=== PATIENT | female | born 1950 | race Caucasian/White ===

== ENCOUNTER 2018-11-08 15:03 | Inpatient (IN) | payer MEDICARE ==
[2018-11-08] MEDS ORDERED: Polyethylene Glycol OPTH DROP 15 ML BOT EA EYE PRN (16:54)
[2018-11-08] MEDS: Acetaminophen 325 MG TAB PO PRN (17:51)
[2018-11-08] MEDS ORDERED: STERILE WATER PO SCH ×2 (18:00→18:30)
[2018-11-08] MEDS ORDERED: VANCOMYCIN HCL PO SCH ×2 (18:00→18:30)
[2018-11-08] MEDS ORDERED: Vancomycin HCl 25 MG/ML Oral PO SCH (18:00)
[2018-11-08] MEDS ORDERED: SIMPLE PO SCH ×2 (18:00→18:30)
[2018-11-08] MEDS: Gabapentin 300 MG CAP PO SCH (20:54)
[2018-11-08] MEDS: Sodium Bicarbonate Tab 325 MG TAB PO SCH (20:54)
[2018-11-08] MEDS: Carvedilol 6.25 MG TAB PO SCH (20:54)
[2018-11-09] MEDS: SIMPLE PO SCH ×2 (01:56→06:48)
[2018-11-09] MEDS: STERILE WATER PO SCH ×2 (01:56→06:48)
[2018-11-09] MEDS: VANCOMYCIN HCL PO SCH ×2 (01:56→06:48)
[2018-11-09] MEDS: Acetaminophen 325 MG TAB PO PRN ×3 (05:03→17:58)
[2018-11-09 05:15] LABS: #Basophils 0.1 thou/uL (0.0-0.2); #Eosinphils 0.3 thou/uL (0.0-0.7); #Monocytes 1.1 thou/uL (0.11-0.59); %Eosinophils 2.9 % (0.0-10.0); %Lymphocytes 9.9 % (21.0-51.0); %Neutrophils 76.1 % (42.0-75.0); Hemoglobin 8.9 g/dL (12.0-16.0); Mean Corpuscular HGB CONC 31.7 g/dL (32.0-36.0); Mean Corpuscular Hemoglobin 28.3 pg (27.0-31.0); Mean Corpuscular Volume 89.3 fL (78.0-98.0); Mean Platelet Volume 4.9 fL (7.4-10.4); Platelet Count 367 thou/uL (130-400); RBC Distribution Width 14.5 % (11.5-14.5); Red Blood Cell (RBC) Count 3.15 mill/uL (4.20-5.40); White Blood Cell (WBC) Count 10.5 thou/uL (4.8-10.8)
[2018-11-09 05:31] LABS: ALT (SGPT) 36 U/L (8-55); AST (SGOT) 67 U/L (5-34); Alkaline Phosphatase 711 U/L (40-150); Anion Gap 15 mmol/L (10-20); BUN (Urea Nitrogen) 49 mg/dL (9.8-20.1); Bilirubin, Total 0.7 mg/dL (0.2-1.2); Calc. Creatinine Clearance 40 mL/min (70-130); Calcium 8.3 mg/dL (7.8-10.44); Carbon Dioxide 21 mmol/L (23-31); Chloride 111 mmol/L (98-107); Estimated GFR-MDRD 25; Globulin 3.8 g/dL (2.4-3.5); Glucose 98 mg/dL (80-115); Potassium 4.7 mmol/L (3.5-5.1); Protein, Total 6.8 g/dL (6.0-8.3); Sodium 142 mmol/L (136-145)
[2018-11-09] MEDS: Lisinopril 5 MG TAB PO SCH (08:15)
[2018-11-09] MEDS: Sodium Bicarbonate Tab 325 MG TAB PO SCH ×3 (08:16→21:25)
[2018-11-09] MEDS: Atorvastatin Calcium 40 MG TAB PO SCH (08:16)
[2018-11-09] MEDS: Furosemide 40 MG TAB PO SCH (08:16)
[2018-11-09] MEDS: Aspirin Chewable 81 MG TAB PO SCH (08:16)
[2018-11-09] MEDS: Saccharomyces boulardii 250 MG CAP PO SCH (08:16)
[2018-11-09] MEDS: PARoxetine 20 MG TAB PO SCH (08:16)
[2018-11-09] MEDS: Carvedilol 6.25 MG TAB PO SCH ×2 (08:16→21:26)
[2018-11-09] MEDS: Vancomycin HCl 25 MG/ML Oral PO SCH ×3 (08:17→21:25)
[2018-11-09] MEDS: Gabapentin 300 MG CAP PO SCH ×2 (08:17→21:26)
[2018-11-09] MEDS ORDERED: Famotidine 20 MG TAB PO PRN (09:00)
--- NOTE | 2018-11-09 10:35 | HP ---
CHIEF COMPLAINT: Weakness. HISTORY OF PRESENT ILLNESS: The patient is a 68-year-old white female, who had been hospitalized at [facility] from 10/31/2018 to 10/17/2018 for yfagb-ha-lyfqcop systolic congestive heart failure with a history of an ischemic cardiomyopathy with a history of ejection fraction of 30-40 percent on echocardiogram done on 10/07/2018. Her hospitalization was also complicated by acute kidney injury and congestive hepatopathy. She also had some ascites and had undergone a paracentesis with only 24 mL of straw-colored fluid obtained. She was treated for possible spontaneous bacterial peritonitis, but the culture came back negative. She developed diarrhea and her C. diff antigen was positive, but her C diff toxin was negative. Dr. Antony, nut grader thought with her history of the recent antibiotics and the diarrhea that there was a good chance that she indeed had C. diff colitis and recommended treatment with vancomycin 125 mg q.i.d. for 10 days that was started on 11/06/2018. The diarrhea has apparently resolved. The patient was left extremely weak and was transferred to [facility] to [facility] for purpose of physical therapy and occupational therapy in an effort to try to improve her general functional capabilities. The patient was seen soon after her admission. She was awake and alert and talkative, but was not a very good historian. She really did not understand why she had been in the hospital, did not understand about her heart problems and had a little trouble orienting through the day. With help of the nurses, she did better with this. She presently had no complaints other than the weakness. Prior to her admission, she had been living with her sister for about a year in the [facility] who assisted her with her ADLs and instrumental ADLs. PAST MEDICAL HISTORY: Hospitalized at [facility] from 10/31/2018 until 11/08/2018 for acute-on- chronic systolic congestive heart failure; coronary artery disease, for which she has undergone a coronary artery bypass and ischemic cardiomyopathy. She had a hepatopathy from the congestive heart failure with ascites. The patient has coronary artery disease. She has undergone a coronary artery bypass that was single-vessel done in [place] in 2013. She had a coronary angiogram in April of 2018 that showed graft to the LAD and obtuse marginal, had a graft to the RCA that was occluded. Her echocardiogram on 10/07/2018 showed an EF of 30-40 percent with severe calcification of the mitral valve with some mild mitral regurgitation. She also had mild left atrial enlargement. 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 She is a 3, para 3. Two of her children were born by . She has 2 living children present. MEDICATIONS: 1. Sodium bicarb 650 mg t.i.d. 2. Florastor 250 mg daily. 3. Lisinopril 5 mg daily. Glucotrol 2.5 mg daily. 1. Lasix 40 mg daily. 2. Coreg 6.25 mg b.i.d. 3. Aspirin 81 mg daily. 4. Zantac 75 mg daily. 5. Paxil 30 mg daily. 6. Iron 65 mg b.i.d. 7. Gabapentin 300 mg b.i.d. 8. Lipitor 40 mg daily. 9. Oral vancomycin 125 mg q.i.d. for 10 days, started on 11/06/2018. ALLERGIES: NO KNOWN ALLERGIES. REVIEW OF SYSTEMS: CONSTITUTIONAL: The patient thinks she is doing all right. She does not know, if she has had any recent fever or recent change in her weight. HEAD AND NECK: The patient says she has very poor vision in the left eye. She said she has had cataract surgery in both of her eyes with interocular lens implant and has trouble with the retina on the left eye and vision is very poor in that left eye. PULMONARY: No shortness of breath. CARDIOVASCULAR: The patient denies any chest pain. GI: No nausea, vomiting. No abdominal pain. The patient had diarrhea, but this has resolved. : No complaint. ADLs: The patient says she needs help with her ADLs. She has trouble getting up. Once up, she can walk a little bit with the use of a walker. HABITS: Alcohol, none. Tobacco, none. SOCIAL HISTORY: The patient had been living with a sister in the [facility] who assisted her with her ADLs. PHYSICAL EXAMINATION: GENERAL: Shows a pleasant 68-year-old white female, who is lying in bed with the head elevated about 45 degrees. She is alert, talkative, and appears comfortable, in no distress. VITAL SIGNS: Her temp is 98.7, pulse 73, respirations 18, O2 saturation 96% on room air, blood pressure 164/67, her weight is 207. HEAD: Normocephalic and atraumatic. EYES: Pupils are equal, round, and reactive. The patient has had bilateral lens implants. Sclerae nonicteric. EARS: TMs are clear. NOSE: Normal. MOUTH AND THROAT: Normal. FACE: The patient has a right facial nerve paralysis. NECK: Carotids are equal and strong. No bruits. Thyroid not enlarged. LUNGS: The patient has some rales at the posterior bases. CHEST: Otherwise is clear. HEART: Has a regular rate with a grade 3/6 systolic murmur heard at the base of the heart. ABDOMEN: Obese. There is bruise in the left lower quadrant and a puncture site where the paracentesis was done. There is no surrounding redness. ABDOMEN: Soft, nontender. There are some shifting areas of dullness to percussion. There is no organomegaly. EXTREMITIES: Lower extremities, there is no edema. The patient has some scarring on the lower legs and some areas of hyperpigmentation. The patient has had a mid foot amputation of the right foot. The right foot is warm. The feet are both warm. I could not definitely feel the pulses in the feet. NEUROLOGIC: The patient is alert. She knows she is in the hospital in [place]. She is not sure why. She could correctly identify the year, but did not know the month and did not know we had recently gone through October 19. She is a very poor historian. The patient has some generalized weakness, but no focal weakness. IMPRESSION: 1. Generalized weakness and deconditioning. a. Secondary to recent hospitalization. b. Contributed to gait abnormality with a right mid foot amputation. 2. Status post hospitalization at [facility] from 10/31/2018 to 2018 for ischemic cardiomyopathy with gfnrv-qg-lyizdoe congestive heart failure. 3. Congestive hepatopathy secondary to the congestive heart failure with ascites and treated for spontaneous bacterial peritonitis, but cultures negative. Also found to have cblpt-xv-veqhfqm kidney disease and Clostridium difficile colitis with positive Clostridium difficile antigen, but negative Clostridium difficile toxin, but symptomatic treatment initiated with vancomycin. 4. Diabetes mellitus type 2. 5. Ischemic cardiomyopathy. a. Echocardiogram on 10/07/2018 showed ejection fraction of 30-40 percent with severe calcification of the mitral valve and mild mitral regurgitation. b. Complicated by recent ohoqm-ns-hbqnxsj congestive heart failure. c. No evidence of acute congestive heart failure as of 11/08/2018. 6. Coronary artery disease. a. Status post coronary artery bypass graft in 2013 in [place]. A coronary angiogram done in April 2018, showed patent graft to the left anterior descending artery and obtuse marginal, but graft to right coronary artery was occluded. 7. Hyperlipidemia. 8. Peripheral neuropathy of the lower extremities. 9. Status post mid foot amputation for infection and gangrenous change. 10. Chronic kidney disease. a. Recent acute kidney injury. 11. Clostridium difficile infection. a. Clostridium difficile antigen positive, Clostridium difficile toxin negative. There was asymptomatic prompting to initiation of vancomycin 125 mg q.i.d. for 10 days, started on 11/06/2018. b. Diarrhea has ceased as of 11/08/2018. 12. Congestive hepatopathy. a. Secondary to acute congestive heart failure. b. Complicated by ascites. c. Complicated by possible spontaneous bacterial peritonitis for which she had a paracentesis on 11/04/2018. Cultures from this had no growth. d. Asymptomatic as of 11/08. 13. Memory impairment. 14. Depression. a. Treated. PLAN: The patient has been admitted to [facility] where her routine medicines will be continued. Physical therapy and occupational therapy will work with her to try to improve her general functional capability and stabilize her gait abnormality. We will check her lab studies in the morning. Job ID: [id number] MTDD
--- NOTE | 2018-11-09 10:38 | PRG ---
DATE OF SERVICE: 11/09/2018 SUBJECTIVE: The patient said she is doing good this morning. She is not short of breath. She has had no chest pain. Said she is not having watery bowel movements. The stools that she has had are developing form to them. OBJECTIVE: GENERAL: The patient is lying in bed, alert, appears comfortable, in no distress. VITAL SIGNS: Her temp is 97.5, pulse 73, respirations 20, O2 saturation 95%, blood pressure 183/90. EXTREMITIES: No edema. LABORATORY DATA: Shows an H and H of 8.9 and 28.2, white cell count 10,500 with 76% segs, 10% lymphocytes, and a platelet count of 367,000. Her sodium 142, potassium 4.7, CO2 is 21, and anion gap 15, BUN 49, creatinine 2, which is stable. Glucose 98, AST 67, alkaline phos 711, albumin 3.0. ASSESSMENT: 1. Generalized weakness and deconditioning. a. Requiring assistance with her activities of daily living ADLs. b. Complicated by gait abnormality with a history of a mid foot amputation of the right foot. 2. Ischemic cardiomyopathy. a. Recent nosci-vb-pynwufu congestive heart failure. b. No evidence of acute congestive heart failure as of 11/09. 3. Coronary artery disease. a. Status post coronary artery bypass. b. Status post heart catheterization in April 2018, showing 2 grafts patent and 1 to the right coronary blocked. 4. Diabetes mellitus type 2. 5. Hypertension. 6. Chronic kidney disease. a.Estimated glomerular filtration rate 25 as of 11/09/2018, stable. 7. Clostridium difficile colitis. a. Improving on vancomycin p.o. 8. Memory impairment. 9. Chronic anemia. 10. Hypertension. PLAN: Continue present care. PT/OT will begin working with her this morning. Job ID: [id number] [facility]
[2018-11-09 11:32] VITALS: BMI 32.1
[2018-11-10] MEDS: Vancomycin HCl 25 MG/ML Oral PO SCH ×2 (02:13→08:54)
[2018-11-10 08:22] VITALS: BP 131/64; TEMP 98.9
[2018-11-10] MEDS: Aspirin Chewable 81 MG TAB PO SCH (08:54)
[2018-11-10] MEDS: Atorvastatin Calcium 40 MG TAB PO SCH (08:54)
[2018-11-10] MEDS: Lisinopril 5 MG TAB PO SCH (08:55)
[2018-11-10] MEDS: Carvedilol 6.25 MG TAB PO SCH (08:55)
[2018-11-10] MEDS: Furosemide 40 MG TAB PO SCH (08:55)
[2018-11-10] MEDS: Gabapentin 300 MG CAP PO SCH (08:55)
[2018-11-10] MEDS: PARoxetine 20 MG TAB PO SCH (08:56)
[2018-11-10] MEDS: Saccharomyces boulardii 250 MG CAP PO SCH (08:56)
[2018-11-10] MEDS: Sodium Bicarbonate Tab 325 MG TAB PO SCH (08:56)
[2018-11-10] MEDS ORDERED: Ondansetron ODT 4 MG TAB PO PRN (09:27)
[2018-11-10 10:23] LABS: #Basophils 0.1 thou/uL (0.0-0.2); #Eosinphils 0.3 thou/uL (0.0-0.7); #Monocytes 1.1 thou/uL (0.11-0.59); #Neutrophils 10.1 thou/uL (1.40-6.50); %Basophils 0.8 % (0.0-1.0); %Eosinophils 2.4 % (0.0-10.0); %Lymphocytes 7.7 % (21.0-51.0); %Monocytes 8.4 % (0.0-10.0); %Neutrophils 80.7 % (42.0-75.0); Hemoglobin 7.9 g/dL (12.0-16.0); Mean Corpuscular HGB CONC 32.8 g/dL (32.0-36.0); Mean Corpuscular Volume 88.5 fL (78.0-98.0); Platelet Count 362 thou/uL (130-400); RBC Distribution Width 14.6 % (11.5-14.5); Red Blood Cell (RBC) Count 2.73 mill/uL (4.20-5.40); White Blood Cell (WBC) Count 12.6 thou/uL (4.8-10.8)
[2018-11-10 10:28] LABS: INR-International Normal Ratio 1.1; Prothrombin Time 14.5 SEC (12.0-14.7)
[2018-11-10 10:39] LABS: ALT (SGPT) 46 U/L (8-55); AST (SGOT) 86 U/L (5-34); Albumin 3.1 g/dL (3.4-4.8); Alkaline Phosphatase 721 U/L (40-150); Anion Gap 14 mmol/L (10-20); BUN (Urea Nitrogen) 48 mg/dL (9.8-20.1); Bilirubin, Total 0.8 mg/dL (0.2-1.2); Calc. Creatinine Clearance 46 mL/min (70-130); Calcium 8.2 mg/dL (7.8-10.44); Carbon Dioxide 21 mmol/L (23-31); Chloride 112 mmol/L (98-107); Estimated GFR-MDRD 29; Globulin 3.8 g/dL (2.4-3.5); Glucose 125 mg/dL (80-115); Potassium 4.9 mmol/L (3.5-5.1); Protein, Total 6.9 g/dL (6.0-8.3); Sodium 142 mmol/L (136-145)
--- NOTE | 2018-11-10 11:10 | PRG ---
DATE OF SERVICE: 11/10/2018 SUBJECTIVE: The patient says she has been nauseated this morning and vomited a little bit. Some Zofran has been ordered. She denies any abdominal pain. The patient's diarrhea, I think, is better. Yesterday, she did work with Physical Therapy and walked some in the room. The patient's petroleum products sales representative had called and indicated that she would need a repeat basic metabolic panel to check on renal function since her lisinopril was restarted. This has been stopped due to the decline in her renal function. OBJECTIVE: GENERAL: The patient is lying in bed. She is alert, appears in no acute distress. VITAL SIGNS: Her temperature is 98.9, pulse 88, respirations 18, O2 saturation 91% on room air, blood pressure 131/64. Her weight is 205, which is stable. LUNGS: Clear. HEART: Regular rate with grade 3/6 systolic ejection murmur heard best at the base of the heart. ABDOMEN: Soft, nontender. EXTREMITIES: Lower extremities, no edema. LABORATORY DATA: Lab from 11/09: Showed BUN was 49, down from 63 on 11/05; creatinine was 2, down from 2.2 on 11/06; GFR was 25. ASSESSMENT: 1. Generalized weakness and deconditioning. a. Secondary to recent hospitalization. b. Contributed to gait abnormality with a right mid foot amputation. c. Improved. Ambulating in room with assistance as of 11/10. 2. Status post hospitalization at [facility] from 10/31/2018 to 2018 for ischemic cardiomyopathy with gjvcx-fp-pohuton congestive heart failure , congestive hepatopathy secondary to the congestive heart failure with ascites and treated for spontaneous bacterial peritonitis, but cultures negative. Also found to have tqaea-wq-vtmstih kidney disease and Clostridium difficile colitis with positive Clostridium difficile antigen, but negative Clostridium difficile toxin, but symptomatic treatment initiated with vancomycin. 3. Diabetes mellitus type 2. 4. Ischemic cardiomyopathy. a. Echocardiogram on 10/07/2018 showed ejection fraction of 30-40 percent with severe calcification of the mitral valve and mild mitral regurgitation. b. Complicated by recent yrxod-dk-brzsqps congestive heart failure. c. No evidence of acute congestive heart failure as of 11/10/2018. 5. Coronary artery disease. a. Status post coronary artery bypass graft in 2013 in [place]. A coronary angiogram done in April 2018, showed patent graft to the left anterior descending artery and obtuse marginal, but graft to right coronary artery was occluded. 6. Hyperlipidemia. 7. Peripheral neuropathy of the lower extremities. 8. Status post mid foot amputation for infection and gangrenous change. 9. Chronic kidney disease. a. Recent acute kidney injury. b. Please put renal function showed a GFR of 25 as of 11/09. 10. Clostridium difficile infection. a. Clostridium difficile antigen positive, Clostridium difficile toxin negative. There was asymptomatic prompting to initiation of vancomycin 125 mg q.i.d. for 10 days, started on 11/06/2018. b. Diarrhea has ceased as of 11/08/2018. 11. Congestive hepatopathy. a. Secondary to acute congestive heart failure. b. Complicated by ascites. c. Complicated by possible spontaneous bacterial peritonitis for which she had a paracentesis on 11/04/2018. Cultures from this had no growth. d. Asymptomatic as of 11/08. 12. Memory impairment. 13. Depression. a. Treated. 14. Some nausea and some vomiting on the morning of 11/10/2018. PLAN: Continue present care. We will recheck renal function in the morning. If any decline in function, we will stop the lisinopril, but we will continue to follow this. I have ordered Zofran for the nausea. Continue PT. Job ID: [id number] MTDD
[2018-11-10] MEDS ORDERED: Sodium Chloride 0.9% 1,000 ML IV SCH (11:15)
--- NOTE | 2018-11-10 12:02 | PRG ---
DATE OF SERVICE: 11/10/2018 ADDENDUM: The patient had several bowel movements this morning that have been black and tarry and it looks a little blood tinged and Hemoccult positive. She has vomited a little coffee-ground material that has had a little blood tinge. She said she just does not feel well. Her lab work shows that her hemoglobin has dropped from 8.9 to 7.9. Platelet count is 367 yesterday, 362 today. BUN yesterday 49, today 48. Creatinine yesterday 2.0, today 1.73. GFR 25 yesterday and today 29. Her blood has pressure been 131/64 and pulse 88. ASSESSMENT: Gastrointestinal bleed. PLAN: We will make arrangement for the patient to be transferred back to [facility] due to the gastrointestinal bleed and drop in hemoglobin, particularly with her history of hepatopathy and ischemic cardiomyopathy. She also is being treated for C diff colitis. I have started the patient on IV saline at just 50 mL/h, and I have given her IV Protonix 40 mg IV. Her PT was 14.5, INR 1.1. Job ID: [id number]
--- NOTE | 2018-11-10 16:06 | DIS ---
DATE OF ADMISSION: 11/08/2018 DATE OF DISCHARGE: 11/10/2018 ADDENDUM: The patient has had another bowel movement that has just bright red blood, approximately 50 mL. She also had another episode of vomiting that had some bright red blood tinge. She felt dizzy when she was up on the commode. On exam, she looks much more pale than what she did earlier. Her blood pressure is 179/90, pulse 102. I have increased her fluids to 100 mL/h. Two units of blood have been ordered to type and cross and we will transfuse the initial unit. This will be started if it becomes available prior to her discharge, and given during the transfer. I have spoke with the accepting doctor at [facility], Dr. Lei, who said they will accept the patient. Job ID: [id number]
[2018-11-11] MEDS ORDERED: Pantoprazole 40 MG VIAL IVP SCH (09:00)
== END 2018-11-10 12:48 | disposition short-term general hospital (02) | DRG 292 ==
LOC: MADMS 15:03
PROVIDERS: ADMIT Family Medicine; ATTEND Family Medicine
DX: I50.22 Chronic systolic (congestive) heart failure (principal); R18.8 Other ascites; A04.72 Enterocolitis due to Clostridium difficile, not specified as recurrent; K92.2 Gastrointestinal hemorrhage, unspecified; I25.10 Atherosclerotic heart disease of native coronary artery without angina pectoris; I25.5 Ischemic cardiomyopathy; E78.5 Hyperlipidemia, unspecified; F32.9 Major depressive disorder, single episode, unspecified; N18.9 Chronic kidney disease, unspecified; E11.22 Type 2 diabetes mellitus with diabetic chronic kidney disease; K76.1 Chronic passive congestion of liver; E11.42 Type 2 diabetes mellitus with diabetic polyneuropathy; R41.3 Other amnesia; R26.9 Unspecified abnormalities of gait and mobility; D64.9 Anemia, unspecified; Z95.1 Presence of aortocoronary bypass graft; Z90.710 Acquired absence of both cervix and uterus; Z89.431 Acquired absence of right foot; Z79.82 Long term (current) use of aspirin
CPT/HCPCS: 36415; 80053; 82274; 85025; 85610; 86850; 86900; 86901; J7050; Q0162